=== PATIENT | female | born 1965 | race Caucasian/White ===

== ENCOUNTER 2016-07-05 22:57 | Emergency (ER) | payer BC ==
[~2016-07-05] VITALS: Ht 162.6 cm; Wt 85.0 kg
[~2016-07-05 22:57] MED LIST: DOCU-144 PO; HYDR-3498 PO; IBUP-1542 PO; LEVO750T8 PO; METR500T14 PO
[2016-07-05 23:00] VITALS: Ht 162.6 cm; Wt 85.0 kg
[2016-07-06] MEDS ORDERED: ONDANSETRON (ODT) 4 MG TAB ODT STA (00:54)
[2016-07-06] MEDS ORDERED: HYDROCODONE/APAP (5/325) TAB PO ONE (01:00)
--- NOTE | 2016-07-06 02:03 | RADRPT ---
PROCEDURE: XR Knee. CLINICAL INDICATION: fall Right knee, left foot, left ankle pain TECHNIQUE: Previous of the right knee were obtained. The images reviewed on a PACS workstation. COMPARISON: None. FINDINGS: No fracture, dislocation, and/or effusion is seen. No significant degenerative change. No definite abnormal calcifications or other soft tissue abnormality. IMPRESSION: No definite acute bony abnormality. RPTAT: [facility] Physician [place] Date Time Electronically viewed and signed by Umu Blas Physician on 07/06/2016 02:03 LE/
--- NOTE | 2016-07-06 02:05 | RADRPT ---
PROCEDURE: XR Ankle. CLINICAL INDICATION: Ankle pain. TECHNIQUE: AP, lateral and oblique views of the left ankle were performed. COMPARISON: There are no similar studies submitted for comparison. FINDINGS: There is normal bone mineralization.There is no acute fracture or dislocation.The ankle mortise is i ntact.No osseous lesion is identified. There is mild soft tissue swelling over the medial aspect of the ankle. IMPRESSION: No acute fracture or dislocation. RPTAT: HIKT .Jasmeet Cee MD, MD Date Time Electronically viewed and signed by .Jasmeet Cee MD, MD on 07/06/2016 02:04 .T/
--- NOTE | 2016-07-06 02:06 | RADRPT ---
PROCEDURE: XR Foot. CLINICAL INDICATION: Trauma. TECHNIQUE: AP, lateral and oblique views of the left foot was obtained. COMPARISON: There are no similar studies submitted for comparison. FINDINGS: There is normal bone mineralization. There is an avulsion fracture at the base of the fifth metatar bev bone with no significant displacement. No osseous erosions are identified. The joint spaces are within normal limits. There is no soft tissue swelling. IMPRESSION: Fifth metatarsal base of the avulsion fracture. RPTAT: HIKT .Jasmeet Cee MD, MD Date Time Electronically viewed and signed by .Jasmeet Cee MD, MD on 07/06/2016 02:05 .T/
[2016-07-06] MEDS ORDERED: HYDR-906 PO (02:17)
[2016-07-06] MEDS ORDERED: NAPR-260 PO (02:18)
[2016-07-06 03:04] VITALS: BP 140/72; PULSE 88; RESP 16
--- NOTE | 2016-07-06 03:30 | ERD ---
ER Documentation Chief Complaint Date/Time DATE: 07/06/16 TIME: 03:22 Chief Complaint sp ground level fall, left kathy pain, right knee pain HPI This patient is a 51-year-old female with no significant medical history presenting to the emergency department for injury to her left ankle and right knee which occurred at 8 PM today. The patient states she stepped off of a step wrong and twisted her left ankle and fell onto her right knee. The patient states she had no pain afterwards but now she is having increasing pain. The patient used ice but has taken no medications. The patient denies any other symptoms or injuries at this time. There is no loss of consciousness or head injury. ROS All systems reviewed and are negative except as per history of present illness. Medications Home Meds Active Scripts Naproxen* (Naprosyn*) 500 Mg Tablet, 500 MG PO BID Y for PAIN AND/OR INFLAMMATION, #30 TAB Prov:MARILU NEWMAN PA-C 07/06/16 Hydrocodone/Acetaminophen ([place] 5-325 Tablet) 1 Each Tablet, 1 TAB PO Q6H Y for PAIN, #15 TAB Prov:MARILU NEWMAN PA-C 07/06/16 Hydrocodone Bit-Acetaminophen* ([place]*) 5-325 Mg Tab, 1 TAB PO Q6 Y for PAIN, # 20 TAB Prov:YOLY ELLIOTT PA-C 12/10/15 Ibuprofen* (Motrin*) 600 Mg Tab, 600 MG PO Q6, #30 TAB Prov:YOLY ELLIOTT PA-C 12/10/15 Docusate Sodium* (Colace*) 100 Mg Capsule, 100 MG PO DAILY for constipation, # 30 CAP Prov:АННА LAINEZ 10/01/15 Levofloxacin* (Levofloxacin*) 750 Mg Tablet, 750 MG PO DAILY for 10 Days, TAB Prov:АННА LAINEZ 10/01/15 Metronidazole (Flagyl) 500 Mg Tab, 500 MG PO Q8 for 10 Days, TAB Prov:АННА LAINEZ 10/01/15 Allergies Allergies: Coded Allergies: No Known Allergy (Unverified , 12/10/15) PMhx/Soc Medical and Surgical Hx: pt denies Medical Hx History of Surgery: Yes (TL, tummy tuck, hernia repairx 3abdomen, x1 groin, breast reduct) Anesthesia Reaction: No Hx Neurological Disorder: No Hx Respiratory Disorders: No Hx Cardiac Disorders: No Hx Psychiatric Problems: No Hx Miscellaneous Medical Probl: No Hx Alcohol Use: No Hx Substance Use: No Hx Tobacco Use: No Smoking Status: Never smoker FmHx Noncontributory for chief complaint Physical Exam Vitals Vital Signs Date Time Temp Pulse Resp B/P Pulse Ox O2 Delivery O2 Flow Rate FiO2 07/06/16 03:04 88 16 140/72 98 Room Air 07/05/16 23:00 97.8 92 20 152/83 100 Physical Exam Const: The patient is resting comfortably in no acute distress. Head: Atraumatic Eyes: Normal Conjunctiva ENT: Normal External Ears, Nose and Mouth. Neck: Full range of motion..~ No meningismus. Resp: Clear to auscultation bilaterally Cardio: Regular rate and rhythm, no murmurs Abd: Soft, non tender, non distended. Normal bowel sounds Skin: No petechiae or rashes Back: No midline or flank tenderness Ext: There is tenderness to palpation of the left foot near the fifth metatarsal with associated ecchymosis and edema. There is edema to the left ankle but mild tenderness to palpation only. Neur: Awake and alert Psych: Normal Mood and Affect Results 24 hrs Current Medications Medications (Trade) Dose Ordered Sig/Moe Route PRN Reason Start Time Stop Time Status Last Admin Dose Admin Ondansetron HCl (Zofran Odt) 4 mg ONCE STAT ODT 07/06/16 00:54 07/06/16 00:56 DC 07/06/16 01:09 Acetaminophen/ Hydrocodone Bitart ([place] (5/325)) 1 tab ONCE ONCE PO 07/06/16 01:00 07/06/16 01:01 DC 07/06/16 01:09 Procedures/MDM EMERGENCY DEPARTMENT COURSE / MEDICAL DECISION MAKING: This is a 51-year-old female who comes to the emergency room secondary to complaints of left foot and right knee pain after fall today. The patient was given p.o. [place] and p.o. Zofran in the department. On re- evaluation, the patient was feeling improved. Radiology: PROCEDURE: XR Ankle. CLINICAL INDICATION: Ankle pain. TECHNIQUE: AP, lateral and oblique views of the left ankle were performed. COMPARISON: There are no similar studies submitted for comparison. FINDINGS: There is normal bone mineralization.There is no acute fracture or dislocation.The ankle mortise is intact.No osseous lesion is identified. There is mild soft tissue swelling over the medial aspect of the ankle. IMPRESSION: No acute fracture or dislocation. RPTAT: HIKT .Jasmeet Cee MD, MD Date Time Electronically viewed and signed by .Jasmeet Cee MD, MD on 07/06/2016 02:04 .T/ CC: MARILU NEWMAN PA-C PROCEDURE: XR Foot. CLINICAL INDICATION: Trauma. TECHNIQUE: AP, lateral and oblique views of the left foot was obtained. COMPARISON: There are no similar studies submitted for comparison. FINDINGS: There is normal bone mineralization. There is an avulsion fracture at the base of the fifth metatarsal bone with no significant displacement. No osseous erosions are identified. The joint spaces are within normal limits. There is no soft tissue swelling. IMPRESSION: Fifth metatarsal base of the avulsion fracture. RPTAT: HIKT .Jasmeet Cee MD, MD Date Time Electronically viewed and signed by .Jasmeet Cee MD, MD on 07/06/2016 02:05 .T/ PROCEDURE: XR Knee. CLINICAL INDICATION: fall Right knee, left foot, left ankle pain TECHNIQUE: Previous of the right knee were obtained. The images reviewed on a PACS workstation. COMPARISON: None. FINDINGS: No fracture, dislocation, and/or effusion is seen. No significant degenerative change. No definite abnormal calcifications or other soft tissue abnormality. IMPRESSION: No definite acute bony abnormality. RPTAT: HLBE Umu Wan, Physician Date Time Electronically viewed and signed by Umu Blas Physician on 07/06/2016 02 :03 LE/ CC: MARILU NEMWAN PA-C The primary diagnosis is left foot fracture. The patient was splinted in the department. The patient was neurovascularly intact post splint application. I have low suspicion for dislocation, significant fracture compromising blood supply, or other emergent conditions at this time. Discharge: I have discussed the lab results and diagnostic findings with the patient and answered any questions or concerns. The patient was discharged with a prescription for [place] and naproxen. The patient was advised to followup with their PMD in 1-2 days and to return to the Emergency Department if there are any new or worsening symptoms. The patient understood and agreed with the diagnosis, treatment and plan. The patient is stable for discharge at this time. Departure Diagnosis: Primary Impression: Foot fracture, left Condition: Fair Patient Instructions: Fracture, Foot (Child) Referrals: KATIE BORGES MD [facility] YOU HAVE RECEIVED A MEDICAL SCREENING EXAM AND THE RESULTS INDICATE THAT YOU DO NOT HAVE A CONDITION THAT REQUIRES URGENT TREATMENT IN THE EMERGENCY DEPARTMENT. FURTHER EVALUATION AND TREATMENT OF YOUR CONDITION CAN WAIT UNTIL YOU ARE SEEN IN YOUR DOCTORS OFFICE WITHIN THE NEXT 1-2 DAYS. IT IS YOUR RESPONSIBILITY TO MAKE AN APPOINTMENT FOR FOLOW-UP CARE. IF YOU HAVE A PRIMARY DOCTOR --you should call your primary doctor and schedule an appointment IF YOU DO NOT HAVE A PRIMARY DOCTOR YOU CAN CALL OUR PHYSICIAN REFERRAL HOTLINE AT IF YOU CAN NOT AFFORD TO SEE A PHYSICIAN YOU CAN CHOSE FROM THE FOLLOWING [facility] [address] [facility] [address] [facility] [facility] [address] [facility] [address] [facility] [address] [facility]. [facility]. [address] [facility] Hours: Fri-Fri 9:00 AM - 5:00 PM Additional Instructions: Follow-up with your primary care physician within 1 week. Return to the emergency department immediately should you have any new or worsening symptoms, uncontrolled fevers, or other unexplained symptoms. Take all medications as directed. MARILU NEWMAN PA-C Jul 06, 2016 03:29
== END 2016-07-06 03:05 | disposition home or self-care (01) ==
LOC: FTE 22:57
DX: S92.355A Nondisplaced fracture of fifth metatarsal bone, left foot, initial encounter for closed fracture (principal); W10.9XXA Fall (on) (from) unspecified stairs and steps, initial encounter; Y92.9 Unspecified place or not applicable
CPT/HCPCS: 73562; 73610